=== PATIENT | female | born 1965 | race Caucasian/White ===

== ENCOUNTER 2022-01-27 12:33 | Outpatient (CLI) | payer OTHER | END 2022-01-27 12:34 | disposition home or self-care (01) | LOC: CSHMRI 12:33 | PROVIDERS: ATTEND Anesthesiology Pain Medicine | DX: M43.17 Spondylolisthesis, lumbosacral region (principal); S32.031D Stable burst fracture of third lumbar vertebra, subsequent encounter for fracture with routine healing; M48.061 Spinal stenosis, lumbar region without neurogenic claudication | CPT/HCPCS: 72100; 72148 ==